=== PATIENT | male | born 1950 | race Caucasian/White ===

== ENCOUNTER 2021-01-16 09:36 | Emergency (ER) | payer BC, MEDICARE, OTHER ==
--- NOTE | 2021-01-16 12:16 | EDM.PDOC ---
ED HPI GENERAL MEDICAL PROBLEM - General Chief Complaint: Respiratory Problem Stated Complaint: SOB,COUGH, RETAINING WATER Time Seen by Provider: 01/16/21 11:30 Source of Information: Reports: Patient History Limitations: Reports: No Limitations - History of Present Illness INITIAL COMMENTS - FREE TEXT/NARRATIVE: c/o sob x 2-3d with exertion no inc'd sob at night hui sleeps poorly lives with hui rarely sees here, she is not ill no f/c/d, no n/v, no cough says he was on 4 water pills 1y ago, which he stopped, "I hate them", then changed to 2 tabs daily hui sometimes skips the 2nd pill not sure if his wt has changed in past month, does not weigh himself, feels more bloated dressings on b/l LEs changed qMon and Fri x last 8m, was getting dressing change today at clinic and told nurse he was sob, sent here says his sock will get damp by end of day but not soak the dressing like he had done several months ago likes liza and whiskey, has 3 drinks/d x 5 days/wk, says his 2 brothers and father from alcohol and cigs, brothers ages 71 and 57, father 57 never smoked, but went to a lot of bars when younger and exposed to a lot of 2nd hand smoke PCP Dr Mark, saw last briefly 2m ago PMH gout, cirrhosis, afib, HF, inc'd bili, alcoholic CMP - Related Data Allergies Allergy/AdvReac Type Severity Reaction Status Date / Time No Known Allergies Allergy Verified 01/16/21 11:50 Home Meds: Home Meds Allopurinol [Zyloprim] 100 mg PO BEDTIME #30 tablet 09/22/14 [Rx] Enoxaparin Sodium [Lovenox] 120 mg SQ DAILY #2 ml 09/22/14 [Rx] Furosemide [Lasix] 20 mg PO DAILY #30 tab 09/22/14 [Rx] Glucosam/Chondr/Collagn/Hyalur [Glucosamine & Chondroitin Cap] 1 cap DAILY 09/22/14 [History] Indomethacin [Indocin] 50 mg TID PRN 09/22/14 [History] Lisinopril/Hydrochlorothiazide [Lisinopril-Hctz 20-12.5 mg Tab] 1 tab DAILY 09/22/14 [History] Multivitamin [Multi-Vitamin Daily] 1 tab DAILY 09/22/14 [History] Avoca-3 Fatty Acids/Fish Oil [Cvs Fish Oil 1,000 mg Softgel] 2 tab BID 09/22/14 [History] Warfarin [Coumadin] 5 mg PO BEDTIME #30 tablet 09/22/14 [Rx] Azithromycin 250 mg PO ASDIRECTED #6 tablet 01/16/21 [Rx] Past Medical History Cardiovascular History: Reports: Hypertension, Other (See Below) Other Cardiovascular History: "weak heart valve" Respiratory History: Reports: Asthma, COPD Social & Family History - Tobacco Use Tobacco Use Status *Q: Unknown Ever Used Tobacco - Caffeine Use Caffeine Use: Reports: Soda - Alcohol Use Days Per Week of Alcohol Use: 5 Number of Drinks Per Day: 3 Total Drinks Per Week: 15 - Recreational Drug Use Recreational Drug Use: No ED ROS GENERAL - Review of Systems Review Of Systems: See Below Constitutional: Reports: No Symptoms HEENT: Reports: No Symptoms Respiratory: Reports: Shortness of Breath. Denies: Wheezing, Pleuritic Chest Pain Cardiovascular: Reports: Edema. Denies: Chest Pain Endocrine: Reports: No Symptoms GI/Abdominal: Reports: No Symptoms : Reports: No Symptoms Musculoskeletal: Reports: No Symptoms Skin: Reports: No Symptoms Neurological: Reports: No Symptoms Psychiatric: Reports: No Symptoms Hematologic/Lymphatic: Reports: No Symptoms Immunologic: Reports: No Symptoms ED EXAM, GENERAL - Physical Exam Exam: See Below Exam Limited By: No Limitations General Appearance: Alert, WD/WN, No Apparent Distress, Other (alert, pleasant, no cough observed, speaks in 10 word sentences, no dyspnea, on acdessory muscles) Nose: Normal Inspection Throat/Mouth: Normal Inspection, Normal Lips, Normal Voice Head: Atraumatic, Normocephalic Neck: Normal Inspection, Supple, Non-Tender Respiratory/Chest: No Respiratory Distress, No Accessory Muscle Use, Chest Non- Tender, Other (dec'd BS at R base). No: Rhonchi Cardiovascular: Regular Rate, Rhythm, No Edema, No Murmur GI/Abdominal: Soft, Non-Tender, No Distention Back Exam: Normal Inspection, Full Range of Motion Extremities: Other (1+ edema of thighs, symmetric, Joaquin wraps up to knees b/l that are dry, dressing not taken down) Neurological: Alert, Oriented, CN II-XII Intact, Normal Cognition, No Motor/Sensory Deficits Psychiatric: Normal Affect, Normal Mood Skin Exam: Warm, Dry, Intact, Normal Color, No Rash Lymphatic: No Adenopathy Course - Vital Signs Last Recorded V/S: Last Vital Signs Temp 36.4 C 01/16/21 11:48 Pulse 55 L 01/16/21 11:48 Resp 22 H 01/16/21 11:48 BP 156/92 H 01/16/21 11:48 Pulse Ox 96 01/16/21 11:48 - Orders/Labs/Meds Orders: Active Orders 24 hr Category Date Time Status Chest 2V [CR] Stat Exams 01/16/21 12:10 Ordered THYROXINE (T4) FREE, DIRECT Routine Lab 01/16/21 14:04 Ordered EKG 12 Lead [EK] Routine Ther 01/16/21 09:57 Ordered Labs: Laboratory Tests 01/16/21 01/16/21 01/16/21 Range/Units 10:05 10:05 10:05 WBC 6.1 (3.2-10.1) x10-3/uL RBC 4.69 (3.90-5.90) x10(6)uL Hgb 14.4 (12.9-17.7) g/dL Hct 43.2 (38.3-50.1) % MCV 91.9 (80.8-98.7) fL MCH 30.7 (27.0-33.3) pg MCHC 33.4 (28.7-35.3) g/dL RDW 15.9 H (12.4-15.0) % Plt Count 163 (117-477) x10(3)uL MPV 8.3 (6.7-11.0) fL Neut % (Auto) 61.2 (40.3-71.8) % Lymph % (Auto) 24.0 (15.8-45.3) % [place] % (Auto) 11.3 (5.5-15.2) % Eos % (Auto) 2.7 (0.1-6.8) % Baso % (Auto) 0.8 (0.3-3.8) % Neut # (Auto) 3.7 (1.7-6.9) x10-3/uL Lymph # (Auto) 1.5 (0.5-4.5) x10-3/uL [place] # (Auto) 0.7 (0.0-1.2) x10-3/uL Eos # (Auto) 0.2 (0.0-0.6) x10-3/uL Baso # (Auto) 0.0 (0.0-0.3) x10-3/uL PT 12.4 H (9.0-11.1) sec INR 1.16 (1.00-1.24) Sodium 145 (135-145) mmol/L Potassium 4.8 (3.5-5.3) mmol/L Chloride 106 (100-110) mmol/L Carbon Dioxide 31 (21-32) mmol/L BUN 15 (7-18) mg/dL Creatinine 1.1 (0.70-1.30) mg/dL Est Cr Clr Drug Dosing TNP Estimated GFR (MDRD) > 60 (>60) BUN/Creatinine Ratio 13.6 (9-20) Glucose 100 (80-116) mg/dL Calcium 8.7 (8.6-10.2) mg/dL Total Bilirubin 2.8 H (0.1-1.3) mg/dL AST 19 (5-25) IU/L ALT 20 (12-36) U/L Alkaline Phosphatase 124 H (56-112) IU/L Troponin I (4.0-60.3) pg/mL C-Reactive Protein (0.5-0.9) mg/dL NT-Pro-B Natriuret Pep (<=125) pg/mL Total Protein 7.3 (6.0-8.0) g/dL Albumin 3.3 (3.2-4.6) g/dL Globulin 4.0 g/dL Albumin/Globulin Ratio 0.8 TSH, Ultra Sensitive (0.36-3.74) IU/mL Urine Color (YELLOW) Urine Appearance (CLEAR) Urine pH (5.0-6.5) Ur Specific [place] (1.010-1.025) Urine Protein (NEGATIVE) mg/dL Urine Glucose (UA) (NORMAL) mg/dL Urine Ketones (NEGATIVE) mg/dL Urine Occult Blood (NEGATIVE) Urine Nitrite (NEGATIVE) Urine Bilirubin (NEGATIVE) Urine Urobilinogen (NEGATIVE) mg/dL Ur Leukocyte Esterase (NEGATIVE) Urine WBC (0-5) Ur Squamous Epith Cells (NS,R,O) Urine Bacteria (NS) Ethyl Alcohol (<0.03) % SARS-CoV-2 RNA (EFRAIN) (NEGATIVE) 01/16/21 01/16/21 01/16/21 Range/Units 10:05 10:05 10:56 WBC (3.2-10.1) x10-3/uL RBC (3.90-5.90) x10(6)uL Hgb (12.9-17.7) g/dL Hct (38.3-50.1) % MCV (80.8-98.7) fL MCH (27.0-33.3) pg MCHC (28.7-35.3) g/dL RDW (12.4-15.0) % Plt Count (117-477) x10(3)uL MPV (6.7-11.0) fL Neut % (Auto) (40.3-71.8) % Lymph % (Auto) (15.8-45.3) % [place] % (Auto) (5.5-15.2) % Eos % (Auto) (0.1-6.8) % Baso % (Auto) (0.3-3.8) % Neut # (Auto) (1.7-6.9) x10-3/uL Lymph # (Auto) (0.5-4.5) x10-3/uL [place] # (Auto) (0.0-1.2) x10-3/uL Eos # (Auto) (0.0-0.6) x10-3/uL Baso # (Auto) (0.0-0.3) x10-3/uL PT (9.0-11.1) sec INR (1.00-1.24) Sodium (135-145) mmol/L Potassium (3.5-5.3) mmol/L Chloride (100-110) mmol/L Carbon Dioxide (21-32) mmol/L BUN (7-18) mg/dL Creatinine (0.70-1.30) mg/dL Est Cr Clr Drug Dosing Estimated GFR (MDRD) (>60) BUN/Creatinine Ratio (9-20) Glucose (80-116) mg/dL Calcium (8.6-10.2) mg/dL Total Bilirubin (0.1-1.3) mg/dL AST (5-25) IU/L ALT (12-36) U/L Alkaline Phosphatase (56-112) IU/L Troponin I 20.5 (4.0-60.3) pg/mL C-Reactive Protein 1.7 H (0.5-0.9) mg/dL NT-Pro-B Natriuret Pep 5575 H* (<=125) pg/mL Total Protein (6.0-8.0) g/dL Albumin (3.2-4.6) g/dL Globulin g/dL Albumin/Globulin Ratio TSH, Ultra Sensitive 12.40 H* (0.36-3.74) IU/mL Urine Color (YELLOW) Urine Appearance (CLEAR) Urine pH (5.0-6.5) Ur Specific [place] (1.010-1.025) Urine Protein (NEGATIVE) mg/dL Urine Glucose (UA) (NORMAL) mg/dL Urine Ketones (NEGATIVE) mg/dL Urine Occult Blood (NEGATIVE) Urine Nitrite (NEGATIVE) Urine Bilirubin (NEGATIVE) Urine Urobilinogen (NEGATIVE) mg/dL Ur Leukocyte Esterase (NEGATIVE) Urine WBC (0-5) Ur Squamous Epith Cells (NS,R,O) Urine Bacteria (NS) Ethyl Alcohol < 0.03 (<0.03) % SARS-CoV-2 RNA (EFRAIN) Negative (NEGATIVE) 01/16/21 Range/Units 11:30 WBC (3.2-10.1) x10-3/uL RBC (3.90-5.90) x10(6)uL Hgb (12.9-17.7) g/dL Hct (38.3-50.1) % MCV (80.8-98.7) fL MCH (27.0-33.3) pg MCHC (28.7-35.3) g/dL RDW (12.4-15.0) % Plt Count (117-477) x10(3)uL MPV (6.7-11.0) fL Neut % (Auto) (40.3-71.8) % Lymph % (Auto) (15.8-45.3) % [place] % (Auto) (5.5-15.2) % Eos % (Auto) (0.1-6.8) % Baso % (Auto) (0.3-3.8) % Neut # (Auto) (1.7-6.9) x10-3/uL Lymph # (Auto) (0.5-4.5) x10-3/uL [place] # (Auto) (0.0-1.2) x10-3/uL Eos # (Auto) (0.0-0.6) x10-3/uL Baso # (Auto) (0.0-0.3) x10-3/uL PT (9.0-11.1) sec INR (1.00-1.24) Sodium (135-145) mmol/L Potassium (3.5-5.3) mmol/L Chloride (100-110) mmol/L Carbon Dioxide (21-32) mmol/L BUN (7-18) mg/dL Creatinine (0.70-1.30) mg/dL Est Cr Clr Drug Dosing Estimated GFR (MDRD) (>60) BUN/Creatinine Ratio (9-20) Glucose (80-116) mg/dL Calcium (8.6-10.2) mg/dL Total Bilirubin (0.1-1.3) mg/dL AST (5-25) IU/L ALT (12-36) U/L Alkaline Phosphatase (56-112) IU/L Troponin I (4.0-60.3) pg/mL C-Reactive Protein (0.5-0.9) mg/dL NT-Pro-B Natriuret Pep (<=125) pg/mL Total Protein (6.0-8.0) g/dL Albumin (3.2-4.6) g/dL Globulin g/dL Albumin/Globulin Ratio TSH, Ultra Sensitive (0.36-3.74) IU/mL Urine Color Yellow (YELLOW) Urine Appearance Clear (CLEAR) Urine pH 7.0 H (5.0-6.5) Ur Specific [place] 1.010 (1.010-1.025) Urine Protein Trace (NEGATIVE) mg/dL Urine Glucose (UA) Normal (NORMAL) mg/dL Urine Ketones Negative (NEGATIVE) mg/dL Urine Occult Blood Negative (NEGATIVE) Urine Nitrite Negative (NEGATIVE) Urine Bilirubin Negative (NEGATIVE) Urine Urobilinogen 4 H (NEGATIVE) mg/dL Ur Leukocyte Esterase Negative (NEGATIVE) Urine WBC 0-5 (0-5) Ur Squamous Epith Cells Few H (NS,R,O) Urine Bacteria Few H (NS) Ethyl Alcohol (<0.03) % SARS-CoV-2 RNA (EFRAIN) (NEGATIVE) - Re-Assessments/Exams Free Text/Narrative Re-Assessment/Exam: 01/16/21 14:11 pt accepted in admission by Dr Colby, however pt refused, pt understands that he may need additional adjustment of his meds that cannot be done adequately at home CRP 1.7 for unclear reason, could be his gout, could have a mild bronchitis (has h/o bronchitis) and will give azithro x 5d as a precaution pt is reluctantly willing to increase his furosemide stated he is taking warfarin yet INR 1.14 not clear why he is bradycardia, need for further inpt monitoring strongly recommended, pt declined pt was patient and pleasant and courteous during a busy stretch in the ED Departure - Departure Time of Disposition: 14:06 Disposition: Home, Self-Care 01 Condition: Good Clinical Impression: Anasarca, Pulmonary edema, Bilateral pleural effusion, Elevated TSH, Bradycardia, Elevated C-reactive protein (CRP), Chronic atrial fibrillation - Discharge Information *PRESCRIPTION DRUG MONITORING PROGRAM REVIEWED*: Not Applicable *COPY OF PRESCRIPTION DRUG MONITORING REPORT IN PATIENT HERB: Not Applicable Prescriptions: Azithromycin 250 mg PO ASDIRECTED #6 tablet Instructions: Pulmonary Edema, Bradycardia, Adult Referrals: Maximus Mark MD [Primary Care Provider] - Forms: ED Department Discharge Additional Instructions: Weigh yourself daily. Increase furosemide 20 mg to 2 tabs in morning and 2 tabs at noon. Resume taking lisinopril-HCTZ 20/12.5 mg 1 tab daily. For possible infection, take azithromycin 250 mg 2 tabs today, then 1 tab daily for 4 days. See your doctor in 2 days for further recommendations. Return to Emergency Department if you are feeling worse as you may need further adjustments in your medications that cannot be done at home. If you heart rate drops low enough, you may need a pacemaker. Sepsis Event Note (ED) - Evaluation Sepsis Screening Result: No Definite Risk - Focused Exam Vital Signs: Vital Signs Temp Pulse Resp BP Pulse Ox 01/16/21 11:48 36.4 C 55 L 22 H 156/92 H 96 - My Orders Last 24 Hours: My Active Orders 01/16/21 09:57 EKG 12 Lead [EK] Routine 01/16/21 12:10 Chest 2V [CR] Stat 01/16/21 14:04 THYROXINE (T4) FREE, DIRECT Routine - Assessment/Plan Last 24 Hours: My Active Orders 01/16/21 09:57 EKG 12 Lead [EK] Routine 01/16/21 12:10 Chest 2V [CR] Stat 01/16/21 14:04 THYROXINE (T4) FREE, DIRECT Routine
--- NOTE | 2021-01-16 16:07 | CR ---
INDICATION: Short of breath x two to three days. History of CHF. CHEST, TWO VIEWS: Two AP views and a lateral view of the chest were obtained 01/16/21 and compared with 09/22/14. The heart is enlarged. The aorta is tortuous with calcification in the arch. Bibasilar small pleural effusions are suggested. There appear to be some minimal parenchymal changes at the lung bases also, which could represent pneumonia and pleuritis. No gross evidence of CHF is seen. Overlying EKG leads are noted. IMPRESSION: 1. Bibasilar small pleural effusions with minimal parenchymal change suggested, possibly on the basis of pneumonia and pleuritis - correlate clinically. These findings were not present in 2015. 2. ASHD with cardiomegaly of mild degree. 3. Somewhat hyperaerated appearance of the lungs may represent COPD, but should be correlated clinically. MTDD
[2021-01-16 17:33] VITALS: BP 173/116; PULSE 67
== END 2021-01-16 14:50 | disposition home or self-care (01) ==
LOC: FB.ED 09:36
DX: J90 Pleural effusion, not elsewhere classified (principal); I48.20 Chronic atrial fibrillation, unspecified; I11.0 Hypertensive heart disease with heart failure; I50.1 Left ventricular failure, unspecified; J44.9 Chronic obstructive pulmonary disease, unspecified; R00.1 Bradycardia, unspecified; R79.82 Elevated C-reactive protein (CRP); R94.6 Abnormal results of thyroid function studies; M10.9 Gout, unspecified; Z79.01 Long term (current) use of anticoagulants; Z79.899 Other long term (current) drug therapy; Z20.822 Contact with and (suspected) exposure to COVID-19
CPT/HCPCS: 36415; 71046; 80053; 80307; 81001; 83880; 84439; 84443; 84484; 85025; 85610; 86140; 93005; 99285-25; U0002

== ENCOUNTER 2024-01-03 10:28 | Emergency (ER) | payer MEDICARE, OTHER ==
[2024-01-03] MEDS: fentaNYL 100 MCG/2 ML SDV IVPUSH ONE (10:36)
[2024-01-03] MEDS ORDERED: Sodium Chloride 0.9% 1,000 ML IV ONE (10:45)
[2024-01-03] MEDS: Ondansetron 4 MG/2 ML SDV IVPUSH ONE (11:12)
[2024-01-03 11:20] LABS: BASOPHILS PERCENT AUTO 0.3 % (0.3-3.8); HEMOGLOBIN 7.4 g/dL (12.9-17.7); LYMPHOCYTES ABSOLUTE AUTO 1.2 x10-3/uL (0.5-4.5); MEAN CORPUSCULAR HGB CONC 32.3 g/dL (28.7-35.3); MEAN PLATELET VOLUME 7.5 fL (6.7-11.0); MONOCYTES ABSOLUTE AUTO 0.8 x10-3/uL (0.0-1.2); NEUTROPHILS PERCENT AUTO 74.5 % (40.3-71.8)
[2024-01-03 11:22] LABS: EOSINOPHILS PERCENT AUTO 0.4 % (0.1-6.8); HEMATOCRIT 22.9 % (38.3-50.1); LYMPHOCYTES PERCENT AUTO 14.7 % (15.8-45.3); MEAN CORPUSCULAR HEMOGLOBIN 29.7 pg (27.0-33.3); MEAN CORPUSCULAR VOLUME 92.1 fL (80.8-98.7); MONOCYTES PERCENT AUTO 10.1 % (5.5-15.2); PLATELET COUNT,PLT 347 x10(3)uL (117-477); RED CELL DISTRIBUTION WIDTH 16.9 % (12.4-15.0); WHITE BLOOD CELL COUNT,WBC 8.1 x10-3/uL (3.2-10.1)
[2024-01-03 11:33] LABS: A/G RATIO 0.4; ALBUMIN 2.1 g/dL (3.2-4.6); ALKALINE PHOSPHATASE 92 IU/L (56-112); BILIRUBIN TOTAL 0.3 mg/dL (0.1-1.3); BUN/CREATININE RATIO 19.6 (9-20); CARBON DIOXIDE,CO2 14 mmol/L (21-32); CHLORIDE,CL 104 mmol/L (100-110); CREATINE KINASE,CK 27 IU/L (60-160); ESTIMATED GFR 10 mL/min (>60); GLUCOSE RANDOM 99 mg/dL (80-116); POTASSIUM,K 6.1 mmol/L (3.5-5.3); SODIUM,NA 135 mmol/L (135-145)
[2024-01-03 11:36] LABS: LACTIC ACID 1.3 mmol/L (0.4-2.0); RED BLOOD CELL COUNT 2.49 x10(6)uL (3.90-5.90)
[2024-01-03 11:43] LABS: ALANINE AMINOTRANSFERASE,ALT 9 U/L (12-36); ASPARTATE AMNIOTRANSFERASE,AST 11 IU/L (5-25)
[2024-01-03 11:46] LABS: BLOOD UREA NITROGEN,BUN 110 mg/dL (7-18); CREATININE 5.6 mg/dL (0.70-1.30)
[2024-01-03] MEDS: HYDROmorphone 2 MG/ML SDV IVPUSH ONE (11:47)
[2024-01-03 11:48] LABS: C-REACTIVE PROTEIN 13.01 mg/dL (<0.50)
[2024-01-03] MEDS: Piperacillin/Tazobactam 2.25 GM in Sodium Chloride 0.9% 50 ML IV ONE (12:45)
[2024-01-03 14:04] VITALS: BP 142/69; PULSE 56
== END 2024-01-03 14:40 ==
LOC: FB.ED 10:28
DX: I13.0 Hypertensive heart and chronic kidney disease with heart failure and stage 1 through stage 4 chronic kidney disease, or unspecified chronic kidney disease (principal); N18.9 Chronic kidney disease, unspecified; N17.9 Acute kidney failure, unspecified; I50.9 Heart failure, unspecified; L89.44 Pressure ulcer of contiguous site of back, buttock and hip, stage 4; R79.82 Elevated C-reactive protein (CRP); R60.1 Generalized edema; I48.91 Unspecified atrial fibrillation; J44.9 Chronic obstructive pulmonary disease, unspecified; Z79.899 Other long term (current) drug therapy
CPT/HCPCS: 36415; 80053; 80307; 82550; 83605; 83880; 85025; 86140; 87040; 96374; 96375; 99285; 99285-25; J1170; J2405; J2543; J3010; J3490

== ENCOUNTER 2025-01-09 16:42 | Emergency (ER) | payer MEDICARE, OTHER ==
[2025-01-09 17:24] LABS: MEAN PLATELET VOLUME 8.2 fL (6.7-11.0)
[2025-01-09 17:26] LABS: PLATELET COUNT,PLT 287 x10(3)uL (117-477); RED BLOOD CELL COUNT 4.52 x10(6)uL (3.90-5.90); RED CELL DISTRIBUTION WIDTH 15.6 % (12.4-15.0); WHITE BLOOD CELL COUNT,WBC 21.6 x10-3/uL (3.2-10.1)
[2025-01-09 17:30] LABS: INR 1.2 (1.00-1.24)
[2025-01-09 17:37] LABS: LACTIC ACID 1.9 mmol/L (0.4-2.0)
[2025-01-09 17:41] LABS: A/G RATIO 0.5; ALANINE AMINOTRANSFERASE,ALT 25 U/L (12-36); ASPARTATE AMNIOTRANSFERASE,AST 20 IU/L (5-25); BILIRUBIN TOTAL 1.1 mg/dL (0.1-1.3); BLOOD UREA NITROGEN,BUN 45 mg/dL (7-18); CARBON DIOXIDE,CO2 23 mmol/L (21-32); CHLORIDE,CL 99 mmol/L (100-110); ESTIMATED GFR 32 mL/min (>60); GLUCOSE RANDOM 120 mg/dL (80-116); POTASSIUM,K 4.8 mmol/L (3.5-5.3); PROTEIN TOTAL,TP 8.1 g/dL (6.0-8.0); SODIUM,NA 133 mmol/L (135-145)
[2025-01-09 17:53] LABS: CREATININE 2.1 mg/dL (0.70-1.30)
[2025-01-09 17:55] LABS: BAND PERCENT MAN 3 % (0-6); LYMPHOCYTES PERCENT MAN 7 % (13-37); MONOCYTES PERCENT MAN 5 % (4-12); SEG NEUTROPHILS PERCENT MAN 85 % (46-82)
[2025-01-09 18:33] LABS: GLUCOSE,URINE NORMAL (NORMAL); OCCULT BLOOD,URINE LARGE (NEGATIVE)
[2025-01-09 18:34] LABS: APPEARANCE,URINE CLOUDY (CLEAR); SQUAMOUS EPITHELIAL CELLS,UR FEW (NS,R,O)
[2025-01-09 19:14] VITALS: BP 100/65; PULSE 70
[2025-01-09] MEDS: Sodium Chloride 0.9% 10 ML Syringe FLUSH PRN (20:43)
[2025-01-09] MEDS: HYDROmorphone 2 MG/ML SDV IVPUSH ONE (21:40)
== END 2025-01-09 21:49 ==
LOC: FB.ED 16:42
DX: N39.0 Urinary tract infection, site not specified (principal); I48.20 Chronic atrial fibrillation, unspecified; N17.9 Acute kidney failure, unspecified; L89.44 Pressure ulcer of contiguous site of back, buttock and hip, stage 4; R33.9 Retention of urine, unspecified; I11.0 Hypertensive heart disease with heart failure; I50.9 Heart failure, unspecified; Z79.899 Other long term (current) drug therapy
CPT/HCPCS: 36415; 51702; 80053; 81001; 83605; 85025; 85610; 86140; 87040; 87077; 87086; 87088; 87186; 96361; 96374; 96375; 99284-25; 99285; J0692; J0696; J1171; J7030